=== PATIENT | male | born 1955 | race Caucasian/White ===

== ENCOUNTER 2018-07-27 14:09 | Emergency (ER) | payer BC, SELFPAY ==
--- NOTE | 2018-07-27 15:23 | EDPHYS ---
Physician Documentation [facility] Name: Nadira Billings Age: 63 yrs Sex: Male : 1955 Arrival Date: 07/27/2018 Time: 14:12 Bed 3 Private MD: ED Physician Louie Sanders HPI: 07/27 15:18 This 63 yrs old Unknown Male presents to ER via EMS with complaints of Chemical ps1 Exposure. 15:18 patient was reportedly exposed to cyanide and sodium hydroxide 4%. Patient states that ps1 the amount was drops on the cheek. 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 He denies any symptoms at this time. They tested the pipe that he was working on and had negative cyanide testing and a pH of 13. . Historical: - Allergies: 14:19 No Known Allergies; hb - Home Meds: 14:19 Plavix Oral [Active]; Lisinopril Oral [Active]; amlodipine oral [Active]; atorvastatin hb oral oral [Active]; carvedilol oral oral [Active]; Hydrocodone-Acetaminophen Oral [Active]; Lorazepam Oral [Active]; Zantac Oral [Active]; - PMHx: 14:19 Hypertension; hb - PSHx: 14:19 CABG; hb - Immunization history:: Adult Immunizations up to date. - Social history:: Smoking status: Patient/guardian denies using tobacco. - Ebola Screening: : No symptoms or risks identified at this time. ROS: 15:18 Constitutional: Negative for fever, chills, and weight loss, Eyes: Negative for injury, ps1 pain, redness, and discharge, Cardiovascular: Negative for chest pain, palpitations, and edema, Respiratory: Negative for shortness of breath, cough, wheezing, and pleuritic chest pain, Abdomen/GI: Negative for abdominal pain, nausea, vomiting, diarrhea, and constipation, MS/Extremity: Negative for injury and deformity, Skin: Negative for injury, rash, and discoloration, Neuro: Negative for headache, weakness, numbness, tingling, and seizure. Exam: 15:18 Constitutional: This is a well developed, well nourished patient who is awake, alert, ps1 and in no acute distress. Head/Face: Normocephalic, atraumatic. Chest/axilla: Normal chest wall appearance and motion. Nontender with no deformity. No lesions are appreciated. Cardiovascular: Regular rate and rhythm. No gallops, murmurs, or rubs. Normal PMI, no JVD. No pulse deficits. Respiratory: Lungs have equal breath sounds bilaterally, clear to auscultation and percussion. No rales, rhonchi or wheezes noted. No increased work of breathing, no retractions or nasal flaring. Abdomen/GI: Soft, non-tender, with normal bowel sounds. No distension or tympany. No guarding or rebound. No evidence of tenderness throughout. Skin: Warm, dry with normal turgor. Normal color with no rashes, no lesions, and no evidence of cellulitis. MS/ Extremity: Pulses equal, no cyanosis. Neurovascular intact. Full, normal range of motion. Neuro: Awake and alert, GCS 15, oriented to person, place, time, and situation. Cranial nerves II-XII grossly intact. Sensory grossly intact. Psych: Awake, alert, with orientation to person, place and time. Behavior, mood, and affect are within normal limits. Vital Signs: 14:19 BP 170 / 89; Pulse 68; Resp 15; Temp 97.9; Pulse Ox 100% on R/A; Pain 0/10; hb 15:09 BP 163 / 87; Pulse 55; Resp 14 S; Pulse Ox 100% on R/A; rv MDM: 14:26 Patient medically screened. ps1 15:18 Data reviewed: vital signs, nurses notes, and as a result, I will discharge patient. ps1 Administered Medications: No medications were administered Disposition: 07/27/18 15:23 Discharged to Home. Impression: Chemical exposure to caustic substance. . - Condition is Stable. - Discharge Instructions: Chemical Burn, [id number]. - Medication Reconciliation Form, Thank You Letter, Antibiotic Education, Prescription Opioid Use form. - Follow up: Private Physician; When: As needed; Reason: Recheck today's complaints, Continuance of care, Re-evaluation by your physician. Follow up: Emergency Department; When: As needed; Reason: Worsening of condition. - Problem is new. - Symptoms are resolved. Signatures: Naz Herrera RN RN Louie Sanders MD MD ps1 Kaiser Bell RN RN rv Corrections: (The following items were deleted from the chart) 16:07 15:23 07/27/2018 15:23 Discharged to Home. Impression: Chemical exposure to caustic rv substance. . Condition is Stable. Forms are Medication Reconciliation Form, Thank You Letter, Antibiotic Education, Prescription Opioid Use. Follow up: Private Physician; When: As needed; Reason: Recheck today's complaints, Continuance of care, Re-evaluation by your physician. Follow up: Emergency Department; When: As needed; Reason: Worsening of condition. Problem is new. Symptoms are resolved. ps1
--- NOTE | 2018-07-27 15:23 | ER ---
Nurse's Notes [facility] Name: Nadira Billings Age: 63 yrs Sex: Male : 1955 Arrival Date: 07/27/2018 Time: 14:12 Bed 3 Private MD: Diagnosis: Chemical exposure to caustic substance. Presentation: 07/27 14:13 Presenting complaint: EMS states: Caustic 98%/cyanide 2% mix (pH 13) dripped out of hb pipe onto face, unknown if ingested. Pt was wearing PPE. Cyanide Kit administered DECAL CUTTER. Transition of care: patient was not received from another setting of care. Onset of symptoms was July 27, 2018. Risk Assessment: Do you want to hurt yourself or someone else? Patient reports no desire to harm self or others. Care prior to arrival: Medication(s) given: NS 500ml, Cyano Kit IV initiated. 20 GA, in the left antecubital area. 14:13 Method Of Arrival: EMS: [facility] 14:13 Acuity: NATALIA 2 hb 14:20 Initial Sepsis Screen: Does the patient meet any 2 criteria? No. Patient's initial hb sepsis screen is negative. Does the patient have a suspected source of infection? No. Patient's initial sepsis screen is negative. Historical: - Allergies: 14:19 No Known Allergies; hb - Home Meds: 14:19 Plavix Oral [Active]; Lisinopril Oral [Active]; amlodipine oral [Active]; atorvastatin hb oral oral [Active]; carvedilol oral oral [Active]; Hydrocodone-Acetaminophen Oral [Active]; Lorazepam Oral [Active]; Zantac Oral [Active]; - PMHx: 14:19 Hypertension; hb - PSHx: 14:19 CABG; hb - Immunization history:: Adult Immunizations up to date. - Social history:: Smoking status: Patient/guardian denies using tobacco. - Ebola Screening: : No symptoms or risks identified at this time. Screenin:21 Abuse screen: Denies threats or abuse. Denies injuries from another. Nutritional hb screening: No deficits noted. Tuberculosis screening: No symptoms or risk factors identified. Fall Risk None identified. Assessment: 14:15 Reassessment: pt face and neck are reddened at this time, pt reports he is normally red sg in the face. notified. General: Appears in no apparent distress. comfortable, well groomed, well developed, well nourished, Behavior is calm, cooperative, appropriate for age. Pain: Denies pain. 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 Full function Speech is normal, Cardiovascular: Heart tones S1 S2 present Capillary refill is brisk in bilateral fingers Patient's skin is warm and dry. Chest pain is denied. Respiratory: Airway is patent Respiratory effort is even, unlabored, Respiratory pattern is regular, symmetrical. GI: No signs and/or symptoms were reported involving the gastrointestinal system. : No signs and/or symptoms were reported regarding the genitourinary system. EENT: Sclera/Cornea are clear in right eye and left eye Nares are clear bilaterally Oral mucosa is moist. Throat is clear. Derm: Skin is pink, warm \T\ dry. Musculoskeletal: No signs and/or symptoms reported regarding the musculoskeletal system. 14:30 Reassessment: pt reports being notified by sales department supervisor that the results of testing from the sample taken at the scene of the accident had very little if any cyanide content. Dr. Sanders notfied. 14:40 Reassessment: pt face noted to be less red at this time, on phone with [facility] physician at this time no new orders recieved. 15:07 General: Appears in no apparent distress. comfortable, Behavior is calm, cooperative. rv Pain: Denies pain. Neuro: Level of Consciousness is awake, alert, obeys commands, Oriented to person, place, time, situation. Cardiovascular: Capillary refill < 3 seconds. Respiratory: Airway is patent. GI: No signs and/or symptoms were reported involving the gastrointestinal system. : No signs and/or symptoms were reported regarding the genitourinary system. EENT: No signs and/or symptoms were reported regarding the EENT system. Derm: Skin is intact. Vital Signs: 14:19 BP 170 / 89; Pulse 68; Resp 15; Temp 97.9; Pulse Ox 100% on R/A; Pain 0/10; hb 15:09 BP 163 / 87; Pulse 55; Resp 14 S; Pulse Ox 100% on R/A; rv ED Course: 14:12 Patient arrived in ED. hb 14:17 Triage completed. hb 14:17 Louie Sanders MD is Attending Physician. ps1 14:18 Landon Du, RN is Primary Nurse. sg 14:20 Arm band placed on right wrist. hb 14:20 No provider procedures requiring assistance completed. Initial lab(s) drawn, by me, sg held in ED. Maintain EMS IV. Dressing intact. Site clean \T\ dry. Gauge \T\ site: 20 G LAC. IV is patent, is intact, with fluids infusing freely, with good blood return, Changed dressing on left saline lock Flushed left antecubital with 5 ml normal saline. 15:08 Patient has correct armband on for positive identification. Bed in low position. Call rv light in reach. Side rails up X 1. Adult w/ patient. Pulse ox on. NIBP on. Administered Medications: No medications were administered Outcome: 15:23 Discharge ordered by . ps1 16:07 Patient left the ED. rv Signatures: Landon Du RN RN sg Naz Herrera RN RN Louie Sanders MD MD ps1 Kaiser Bell RN RN rv Corrections: (The following items were deleted from the chart) 14:21 14:13 Presenting complaint: EMS states: Caustic/cyanide mix dripped out of pipe onto hb face, unknown if ingested. Pt was wearing PPE. Cyanide Kit administered DECAL CUTTER. hb
== END 2018-07-27 16:07 | disposition home or self-care (01) ==
LOC: ER 14:09
DX: Z77.098 Contact with and (suspected) exposure to other hazardous, chiefly nonmedicinal, chemicals (principal); I10 Essential (primary) hypertension; Z79.02 Long term (current) use of antithrombotics/antiplatelets; Z79.899 Other long term (current) drug therapy; Z95.1 Presence of aortocoronary bypass graft
CPT/HCPCS: 99283

== ENCOUNTER 2020-04-06 10:45 | Inpatient (IN) | payer OTHER ==
[2020-04-06] MEDS: PIPER/TAZO/NS 3.375gm 3.375 GM/100 ML BAG IV SCH ×3 (11:30→16:22)
[2020-04-06] MEDS ORDERED: CIPROFLOXACIN 400mg IV 400 MG/200 ML BAG IV ONE (11:35)
[2020-04-06] MEDS ORDERED: Ringers Lactate 1,000 ML IV ONE (11:35)
[2020-04-06 11:37] LABS: Absolute Lymphocytes (CBC) 1.4 K/uL (0.7-4.9); Basophils % 0.5 % (0-1.3); Hematocrit 46.6 % (39.6-49.0); Lymphocytes % 14.2 % (15.3-44.8); MPV 7.8 fL (7.6-11.3); RBC Red Blood Cell Count 4.84 M/uL (4.33-5.43)
[2020-04-06] MEDS ORDERED: propofoL 200 MG/20 ML VIAL IV ONE (11:54)
[2020-04-06] MEDS ORDERED: FENTANYL CITR 100 MCG/2 ML ONE (11:54)
[2020-04-06] MEDS ORDERED: LIDOCAINE 2% MPF 5 ML VIAL ONE (11:54)
[2020-04-06] MEDS ORDERED: ONDANSETRON 4 MG/2 ML VIAL ONE (11:55)
[2020-04-06] MEDS ORDERED: dexAMETHasone 10 MG/ML VIAL ONE (11:55)
[2020-04-06] MEDS ORDERED: KETOROLAC 30 MG/ML INJ ONE (11:55)
[2020-04-06 12:00] LABS: Potassium 4.1 mmol/L (3.5-5.1)
[2020-04-06] MEDS ORDERED: NA CHLORIDE 0.9% 1,000 ML IV SCH (12:00)
[2020-04-06] MEDS ORDERED: DIPHENHYDRAMINE 50 MG/ML VIAL ONE (12:16)
[2020-04-06] MEDS ORDERED: EPHEDRINE SULF 50 MG/ML VIAL ONE (13:29)
[2020-04-06] MEDS ORDERED: MEPERIDINE HCL 25 MG/ML SYR ONE (13:33)
[2020-04-06] MEDS ORDERED: ONDANSETRON 4 MG/2 ML VIAL IV PRN (13:43)
[2020-04-06] MEDS ORDERED: SODIUM CHLORIDE 0.9% 10ML INJ IV PRN (13:43)
[2020-04-06] MEDS ORDERED: HYDROMORPHONE HCL 1 MG/ML INJ IV PRN (13:43)
--- NOTE | 2020-04-06 13:43 | P.BOP ---
Preoperative diagnosis: right forearm and upper arm cellulitis, abscess, fascitis Postoperative diagnosis: same plus forearm fascitis Primary procedure: Incision and drainage of forearm and upper arm complex abscess Secondary procedure: [id number] Estimated blood loss: <30cc Specimen: culture and necrotic tissue Findings: complex abscess , fascitis, multiple incisions created down to fascia. Complications: None Drain(s): Other (packing) Transferred to: Recovery Room Condition: Good
--- NOTE | 2020-04-06 14:12 | HP ---
Date of Admission: 04/06/2020 History Of Present Illness: This is an emergency case of a 64-year-old patient seen today with swell ing of his entire forearm and half his upper arm almost circumferentially after receiving what he bel ieved was an insect bite about 48 hours ago. This is associated with increase in temperature. There are blisters forming on the forearm and multiple locations, trying to transudate fluid from inside. It looks like there is some swelling all over the arm with redness associated with it consistent wit h abscess and cellulitis. The patient was emergently admitted to the hospital, admitted and also muhammad kebrandon in OR for incision and drainage of right arm abscess. He was started on IV antibiotics immediate ly. He does not remember any trauma, any falls. He does remember that his insect bite, but he canno t describe the insect. He has history of cardiac disease. He has stents placed more than a year ago . He is on blood thinners. His assembler faucets is Dr. Reynoso. His primary doctor is Yeimy keller. He denies any dysuria, hematuria, hematochezia, or melena. Denies any recent traveling out of [facility]. Denies any family member sick at home. Denies any shortness of breath. Denies any chest pain. No fever. Review of Systems: Ten points otherwise unremarkable. Medical History: Include hypertension, cardiac disease, history of stent placement. He does smoke. He does not drink alcohol. Allergies: NONE. Family History: Noncontributory. Physical Examination: General: The patient is awake and alert. HEENT: Pupils are equal and reactive, anicteric. Neck: Supple. Chest: Clear. Heart: S1, S2. Abdomen: Soft and depressible. Nontender, nondistended. Bowel sounds positive. Extremities: The patient has bilateral lower extremity and upper extremity radial and ulnar pulse an d dorsalis pedis pulse present, but in the right upper extremity, the patient has about 90% of his fo rearm swollen from the wrist up to the elbow and then come up to about prison in the upper arm. Swe lling in the subcutaneous tissue with blisters forming in multiple areas of the leg with fluctuance p resent and cellulitis present. The patient need immediate incision and drainage of that abscess and may need more than one surgical intervention. Pulse is still present. No cyanosis. Cranial nerves 2 through 12 grossly within normal limits. Laboratory Data: Blood work shows WBC count of 10 with hemoglobin of 16, potassium is 4.1, glucose 1 27. Assessment: A 64-year-old patient with severe cellulitis of the right forearm and arm with fluctuanc e present covering about 90% of that extremity. FAST 48 hours with blisters forming multiple part of the forearm. This blisters have some epithelium slough off showing the dermis underneath and this lo oks deep underneath like the infection must be near the fascia area, so we are going to do an incisio n and drainage. This may be more than 1 occasion with benefits, alternatives, and risks fully explai christi which include, but not limited to infection, bleeding, damage to adjacent structures as complicat ion, nonhealing wound, myocardial infarction, and even . He also understands this may not relie ve any symptoms. He might need more than one surgical intervention. He may require further incision and drainages. At this moment, the compartments seems to be intact, but he might not rule out bryan chowdhury to deal with that in the future. JUANCHO/GREGORIO Voice ID: [id number]
--- NOTE | 2020-04-06 14:27 | OP ---
Date of Procedure: 04/06/2020 Surgeon: Aayush Jj MD Preoperative Diagnosis: Right forearm and upper arm cellulitis abscess. Postoperative Diagnoses: Right forearm and upper arm cellulitis abscess plus forearm, upper arm fasc iitis. Procedure: Incision and drainage of complex abscess, right forearm and upper arm about 30 x 10 cm. Findings: Patient has complex abscess. The patient has fasciitis over multiple areas of the forearm and arm with multiple incisions to drain the entire arm area and upper arm area. Specimen: Culture and necrotic tissue. Packing: Wet-to-dry. Indications: This is a 64-year-old patient who comes to us few hours ago to office after 48 hours of initial trauma with what he claimed was an insect. Given swelling and dense swelling over the entir e forearm and upper arm region with erythema, cellulitis consistent with an abscess, this was fast. So, we explained to the patient the need for immediate admission to the hospital, IV antibiotics, inc ision and drainage of a complex abscess with benefits, alternatives, and risks including, but not henriquez ited to infection, bleeding, damage to adjacent structures, nonhealing wound, neuro damage, scars, SD and even . He also understands this may not relieve any symptoms. He might need more than one surgical intervention. He understood, signed a consent. Procedure In Detail: The patient was immediately brought to the operating room, placed in supine pos ition. Anesthesia was done without complication. Right arm was prepped and draped in sterile fashio n. A time-out was called. At that moment, we proceeded to inject local anesthetics of areas to be i ncised. We have 2 areas of necrotic tissue present and the rest are just dense tissue. So we remove d those 2 necrotic tissue areas that gave us access to the fascia though that fascia was inflamed at this moment involving the infection. So, we proceeded to make counter incisions at multiple sites of arm to allow us to drain the subcutaneous tissue properly. The entire area is about 20 x 10 cm sinc e we have a partial separation of subcutaneous tissue from the fascia consistent with fasciitis. The patient tolerated the procedure well. Hemostasis was obtained. At the end of the case, the area wa s packed with dressings and sent to recovery room in stable condition. This patient will be admitted for IV antibiotics and may require more than one surgical intervention and debridement. JUANCHO/RAYAL Voice ID: [id number] Report ID: [id number]
[2020-04-06 14:44] VITALS: BMI 30.2
[2020-04-06] MEDS: NA CHLORIDE 0.9% 1,000 ML IV SCH (15:06)
--- NOTE | 2020-04-06 15:24 | EKG ---
Test Date: 2020-04-06 Test Time: 11:26:35 Manager Banking: SEBASTIAN MEASUREMENT RESULTS: Intervals: Rate: 64 VA: 194 QRSD: 162 QT: 438 QTc: 451 Globe: P: 67 VA: 194 QRS: -55 T: 100 INTERPRETIVE STATEMENTS: Sinus rhythm with fusion complexes Left axis deviation Left bundle branch block Abnormal ECG No previous ECG available for comparison Electronically Signed On 04-06-20 15:23:54 CDT by Aydin Head
--- NOTE | 2020-04-06 16:55 | P.PN ---
Subjective Date of Service: 04/06/20 Primary Care Provider: Dr Jj Chief Complaint: Pain and swelling right upper extremity Consult Note 64-year-old male with past medical history of hypertension, hyperlipidemia, CAD status post CABG and stents admitted for postoperative monitoring of right forearm and upper arm cellulitis, abscess, fascitis status post Incision and drainage of forearm and upper arm complex abscess by Dr. Jj . Patient stated that he started having swelling and tenderness and erythema of the right upper extremity following in insect bite 2 days ago. Denies any trauma. No recent travel. He was diagnosed with abscess and cellulitis and was taken to surgery and underwent incision and drainage and was admitted for further management. Denies any fever or chills Denies any chest pain or shortness of breath Past medical history : Hypertension, hyperlipidemia, CAD, status post CABG and PCI stents on Plavix Past surgical history : Appendectomy, CABG Social history : Daily smoker Family history : Hypertension Review of system : All Of the 14 point review of system is negative except for those mentioned HPI Review of Systems 10-point ROS is otherwise unremarkable Physical Examination - Vital Signs Temperature: 96.7 F Blood Pressure: 136/77 Pulse: 50 Respirations: 16 Pulse Ox (%): 96 - Physical Exam General: Alert, In no apparent distress, Oriented x3 HEENT: Atraumatic, Normocephalic Neck: Supple, 2+ carotid pulse no bruit Respiratory: Clear to auscultation bilaterally, Normal air movement Cardiovascular: Regular rate/rhythm, Normal S1 S2 Capillary refill: <2 Seconds Gastrointestinal: Soft and benign, W/out hepatosplenomegaly Musculoskeletal: Tenderness, Other (Dressing Intact in RUE, Movements of fingers intact , cap refill < 2 sec ) Integumentary: Skin lesion, Tenderness/swelling, Erythema, Warmth Neurological: Normal speech, Normal strength at 5/5 x4 extr Lymphatics: No axilla or inguinal lymphadenopathy Urinary: Other (No bladder distention) - Studies Laboratory Data (last 24 hrs) 04/06/20 11:24: Sodium 140, Potassium 4.1, BUN 15, Creatinine 1.07, Glucose 127 H 04/06/20 11:24: WBC 10.0, Hgb 16.0, Hct 46.6, Plt Count 217 Assessment & Plan - Problems (Diagnosis) (1) Abscess of right upper extremity Current Visit: Yes Status: Acute (2) Hypertension Current Visit: Yes Status: Acute (3) Ischemic heart disease due to coronary artery obstruction Current Visit: Yes Status: Acute Physician Review Additional Text: Right forearm and upper arm cellulitis, abscess, fascitis Status post Incision and drainage of forearm and upper arm complex abscess Hypertension Hyperlipidemia CAD status post CABG and stents Smoker Plan Pain control IV antibiotic Appreciate help from Dr. Jj Continue home medications and titrate as needed Continue antihypertensives Advised smoking cessation GI/DVT prophylaxis Advanced directives full code Time Spent Managing Pts Care (In Minutes): 45
[2020-04-06] MEDS ORDERED: PIPER/TAZO/NS 3.375gm 3.375 GM/100 ML BAG IVPB SCH (18:00)
[2020-04-06] MEDS ORDERED: CIPROFLOXACIN 400mg IV 400 MG/200 ML BAG IV SCH (21:00)
[2020-04-06] MEDS: CIPROFLOXACIN 400mg IV 400 MG/200 ML BAG IV SCH (21:13)
[2020-04-06] MEDS: DOXYCYCLINE 100 MG CAP PO SCH (21:14)
[2020-04-06] MEDS: AMLODIPINE 10 MG TAB PO SCH (21:14)
[2020-04-06] MEDS: ATORVASTATIN 20 MG TAB PO SCH (21:14)
[2020-04-06] MEDS: carvediloL 3.125 MG TAB PO SCH (21:15)
[2020-04-07] MEDS: PIPER/TAZO/NS 3.375gm 3.375 GM/100 ML BAG IV SCH ×3 (00:59→16:44)
[2020-04-07] MEDS: NA CHLORIDE 0.9% 1,000 ML IV SCH ×3 (01:00→21:19)
[2020-04-07 06:05] LABS: Absolute Lymphocytes (CBC) 0.9 K/uL (0.7-4.9); Basophils % 1.3 % (0-1.3); Hematocrit 41.3 % (39.6-49.0); Lymphocytes % 7.9 % (15.3-44.8); MPV 8.2 fL (7.6-11.3); RBC Red Blood Cell Count 4.33 M/uL (4.33-5.43)
[2020-04-07 06:09] LABS: Potassium 4.5 mmol/L (3.5-5.1)
[2020-04-07] MEDS: CIPROFLOXACIN 400mg IV 400 MG/200 ML BAG IV SCH ×2 (08:18→21:20)
[2020-04-07] MEDS: ENOXAPARIN 40 MG/0.4 ML SQ SCH (08:19)
[2020-04-07] MEDS: carvediloL 3.125 MG TAB PO SCH ×2 (08:20→21:21)
[2020-04-07] MEDS: DOXYCYCLINE 100 MG CAP PO SCH ×2 (08:20→21:20)
[2020-04-07] MEDS: lisinopriL 10 MG TAB PO SCH (08:22)
[2020-04-07] MEDS: PANTOPRAZOLE 40 MG INJ IVP SCH (08:22)
[2020-04-07] MEDS: CLOPIDOGREL 75 MG TABLET PO SCH (08:22)
[2020-04-07 08:57] LABS: Platelet Estimate ADEQ; White Blood Cell Scan OK
[2020-04-07 08:58] LABS: Blood Morphology Comment NOT SEEN (NOT SEEN)
--- NOTE | 2020-04-07 10:43 | P.PN ---
Subjective Date of Service: 04/07/20 Primary Care Provider: Dr Jj Chief Complaint: Pain and swelling right upper extremity Subjective: No new changes, Improving Feeling better , pain controlled well Review of Systems 10-point ROS is otherwise unremarkable Physical Examination - Vital Signs Temperature: 97.5 F Blood Pressure: 147/64 Pulse: 66 Respirations: 20 Pulse Ox (%): 98 - Physical Exam General: Alert, In no apparent distress HEENT: Atraumatic, Normocephalic Neck: Supple, 2+ carotid pulse no bruit Respiratory: Clear to auscultation bilaterally, Normal air movement Cardiovascular: Regular rate/rhythm, Normal S1 S2 Capillary refill: <2 Seconds Gastrointestinal: Soft and benign, W/out hepatosplenomegaly Musculoskeletal: No clubbing, No swelling Integumentary: No rashes Neurological: Normal speech, Normal strength at 5/5 x4 extr Lymphatics: No axilla or inguinal lymphadenopathy - Studies Laboratory Data (last 24 hrs) 04/07/20 05:28: Sodium 139, Potassium 4.5, BUN 13, Creatinine 0.99, Glucose 168 H 04/07/20 05:28: WBC 11.2 H, Hgb 14.4, Hct 41.3, Plt Count 175 04/06/20 11:24: Sodium 140, Potassium 4.1, BUN 15, Creatinine 1.07, Glucose 127 H 04/06/20 11:24: WBC 10.0, Hgb 16.0, Hct 46.6, Plt Count 217 Assessment & Plan - Problems (Diagnosis) (1) Abscess of right upper extremity Current Visit: Yes Status: Acute (2) Hypertension Current Visit: Yes Status: Acute (3) Ischemic heart disease due to coronary artery obstruction Current Visit: Yes Status: Acute Physician Review Additional Text: Right forearm and upper arm cellulitis, abscess, fascitis Status post Incision and drainage of forearm and upper arm complex abscess Hypertension Hyperlipidemia CAD status post CABG and stents Smoker Plan Pain controlled well IV antibiotic Appreciate help from Dr. Jj Continue home medications Continue antihypertensives Advised smoking cessation GI/DVT prophylaxis Time Spent Managing Pts Care (In Minutes): 42
[2020-04-07] MEDS: AMLODIPINE 10 MG TAB PO SCH (21:20)
[2020-04-07] MEDS: ATORVASTATIN 20 MG TAB PO SCH (21:21)
[2020-04-08] MEDS: PIPER/TAZO/NS 3.375gm 3.375 GM/100 ML BAG IV SCH ×2 (00:47→10:47)
[2020-04-08] MEDS: NA CHLORIDE 0.9% 1,000 ML IV SCH (09:12)
[2020-04-08] MEDS: CLOPIDOGREL 75 MG TABLET PO SCH (09:13)
[2020-04-08] MEDS: DOXYCYCLINE 100 MG CAP PO SCH (09:13)
[2020-04-08] MEDS: PANTOPRAZOLE 40 MG INJ IVP SCH (09:17)
[2020-04-08] MEDS: carvediloL 3.125 MG TAB PO SCH (09:18)
[2020-04-08] MEDS: ENOXAPARIN 40 MG/0.4 ML SQ SCH (09:18)
[2020-04-08] MEDS: CIPROFLOXACIN 400mg IV 400 MG/200 ML BAG IV SCH (09:18)
[2020-04-08] MEDS: lisinopriL 10 MG TAB PO SCH (09:19)
--- NOTE | 2020-04-08 11:08 | P.PN ---
Subjective Date of Service: 04/08/20 Primary Care Provider: Dr Jj Chief Complaint: Pain and swelling right upper extremity Feeling better , pain controlled well Physical Examination - Vital Signs Temperature: 97.3 F Blood Pressure: 144/76 Pulse: 60 Respirations: 20 Pulse Ox (%): 96 - Physical Exam General: Alert, In no apparent distress, Oriented x3 HEENT: Atraumatic, Normocephalic Neck: Supple, 2+ carotid pulse no bruit Respiratory: Clear to auscultation bilaterally Cardiovascular: Regular rate/rhythm, Normal S1 S2 Capillary refill: <2 Seconds Gastrointestinal: Soft and benign, W/out hepatosplenomegaly Musculoskeletal: No clubbing, No swelling Integumentary: No rashes Neurological: Normal speech, Normal strength at 5/5 x4 extr Lymphatics: No axilla or inguinal lymphadenopathy Assessment & Plan - Problems (Diagnosis) (1) Abscess of right upper extremity Current Visit: Yes Status: Acute (2) Hypertension Current Visit: Yes Status: Acute (3) Ischemic heart disease due to coronary artery obstruction Current Visit: Yes Status: Acute Physician Review Additional Text: Right forearm and upper arm cellulitis, abscess, fascitis Status post Incision and drainage of forearm and upper arm complex abscess Hypertension Hyperlipidemia CAD status post CABG and stents Smoker Plan Pain controlled well IV antibiotic Appreciate help from Dr. Jj Continue home medications Continue antihypertensives Advised smoking cessation GI/DVT prophylaxis Possible Dc home if cleared by Dr. Jj Time Spent Managing Pts Care (In Minutes): 45
--- NOTE | 2020-04-08 12:17 | P.DS ---
Admission Date: 04/06/20 Discharge Date: 04/09/20 Primary Care Provider: Dr Jj Disposition: ROUTINE DISCHARGE Discharge Condition: GOOD Reason for Admission: Pain and swelling right upper extremity - Problems (1) Abscess of right upper extremity Status: Acute (2) Hypertension Status: Acute (3) Ischemic heart disease due to coronary artery obstruction Status: Acute Brief History of Present Illness: 64-year-old patient seen today with swelling of his entire forearm and half his upper arm almost circumferentially after receiving what he believed was an insect bite about 48 hours ago. This is associated with increase in temperature. There are blisters forming on the forearm and multiple locations, trying to transudate fluid from inside. It looks like there is some swelling all over the arm with redness associated with it consistent with abscess and cellulitis. The patient was emergently admitted to the hospital, admitted and also booked in OR for incision and drainage of right arm abscess. He was started on IV antibiotics immediately. He does not remember any trauma, any falls. He does remember that his insect bite, but he cannot describe the insect. He has history of cardiac disease. He has stents placed more than a year ago. He is on blood thinners. His application support is Dr. Reynoso. His primary doctor is Yeimy Reddy. He denies any dysuria, hematuria, hematochezia, or melena. Denies any recent traveling out of the country. Denies any family member sick at home. Denies any shortness of breath. Denies any chest pain. No fever. Hospital Course: Abscess of right upper extremity Hypertension H/o Ischemic heart disease due to coronary artery obstruction Right forearm and upper arm cellulitis, abscess, fascitis Status post Incision and drainage of forearm and upper arm complex abscess Hypertension Hyperlipidemia CAD status post CABG and stents Smoker Plan Pain controlled well IV antibiotic Appreciate help from Dr. Jj Continue home medications Continue antihypertensives Advised smoking cessation GI/DVT prophylaxis Possible Dc home if cleared by Dr. Jj Vital Signs/Physical Exam: Temp Pulse Resp BP Pulse Ox 97.3 F 60 20 144/76 H 96 04/08/20 11:08 04/08/20 11:08 04/08/20 11:08 04/08/20 11:08 04/08/20 11:08 General: Alert, In no apparent distress HEENT: Atraumatic, Normocephalic Neck: Supple Respiratory: Clear to auscultation bilaterally Cardiovascular: Regular rate/rhythm, Normal S1 S2 Capillary refill: <2 Seconds Gastrointestinal: Soft and benign, W/out hepatosplenomegaly Musculoskeletal: No swelling Integumentary: No rashes Neurological: Normal speech, Normal strength at 5/5 x4 extr Lymphatics: No axilla or inguinal lymphadenopathy Laboratory Data at Discharge: WBC 11.2 K/uL (4.3-10.9) H 04/07/20 05:28 Hgb 14.4 g/dL (13.6-17.9) 04/07/20 05:28 Hct 41.3 % (39.6-49.0) 04/07/20 05:28 Plt Count 175 K/uL (152-406) 04/07/20 05:28 Sodium 139 mmol/L (136-145) 04/07/20 05:28 Potassium 4.5 mmol/L (3.5-5.1) 04/07/20 05:28 BUN 13 mg/dL (7-18) 04/07/20 05:28 Creatinine 0.99 mg/dL (0.55-1.3) 04/07/20 05:28 Glucose 168 mg/dL (74-106) H 04/07/20 05:28 Home Medications: Amlodipine [Norvasc*] 1 tab PO BEDTIME 04/06/20 Atorvastatin Calcium [Lipitor*] 1 tab PO BEDTIME 04/06/20 Carvedilol [Coreg] 1 tab PO BID 04/06/20 Clopidogrel Bisulfate [Plavix*] 1 tab PO DAILY 04/06/20 Lisinopril [Zestril] 1 tab PO DAILY 04/06/20 Ciprofloxacin HCl [Cipro 500 MG Tablet] 500 mg PO BID #14 tab 04/08/20 Codeine/APAP [Tylenol W/Codeine #3 tab] 1 tab PO Q6HP PRN #20 tab 04/08/20 metroNIDAZOLE [Flagyl] 500 mg PO Q8H #21 tablet 04/08/20 New Medications: Ciprofloxacin HCl [Cipro 500 MG Tablet] 500 mg PO BID #14 tab metroNIDAZOLE [Flagyl] 500 mg PO Q8H #21 tablet Codeine/APAP [Tylenol W/Codeine #3 tab] 1 tab PO Q6HP PRN #20 tab PRN Reason: Pain Followup: Aayush Jj MD [ACTIVE - CAN ADMIT] - Time spent managing pt's care (in minutes): 42
[2020-04-08 14:25] VITALS: BP 154/74; TEMP 97.7
[2020-04-08 15:14] VITALS: O2SAT 96
== END 2020-04-08 13:31 | disposition home or self-care (01) | DRG 581 ==
LOC: 2ND 10:52
PROVIDERS: ADMIT Surgery; ATTEND Surgery
PROC: 0J9D0ZZ Drainage of Right Upper Arm Subcutaneous Tissue and Fascia, Open Approach (ICD-10-PCS; principal; 2020-04-06 12:30)
DX: L03.113 Cellulitis of right upper limb (principal); L02.413 Cutaneous abscess of right upper limb; S50.861A Insect bite (nonvenomous) of right forearm, initial encounter; I10 Essential (primary) hypertension; F17.200 Nicotine dependence, unspecified, uncomplicated; E78.5 Hyperlipidemia, unspecified; I25.10 Atherosclerotic heart disease of native coronary artery without angina pectoris; M72.9 Fibroblastic disorder, unspecified; Z95.5 Presence of coronary angioplasty implant and graft; Z90.49 Acquired absence of other specified parts of digestive tract
CPT/HCPCS: 36415; 80048; 85025; 88304; 93005; C9113; J0744; J1100; J1200; J1650; J2175; J2405; J2543; J2704; J3010; J7030; J7120